=== PATIENT | male | born 1985 | race Caucasian/White ===

== ENCOUNTER 2017-03-01 23:23 | Emergency (ER) | payer OTHER ==
[~2017-03-01] VITALS: Ht 185.4 cm; Wt 81.7 kg
[2017-03-02] MEDS ORDERED: CEPHALEXIN500 MG PO (00:23)
[2017-03-02] MEDS ORDERED: TRAMADOL HCL50 MG PO (00:23)
[2017-03-02] MEDS ORDERED: ACETAMINOPHEN-1 EAC1 PO (00:37)
== END 2017-03-02 00:54 | disposition home or self-care (01) ==
LOC: ED 23:23
DX: S02.2XXA Fracture of nasal bones, initial encounter for closed fracture (principal); F17.200 Nicotine dependence, unspecified, uncomplicated; Z90.49 Acquired absence of other specified parts of digestive tract; Z88.0 Allergy status to penicillin; Z88.6 Allergy status to analgesic agent; Z88.5 Allergy status to narcotic agent; W22.8XXA Striking against or struck by other objects, initial encounter
CPT/HCPCS: 70160; 99283

== ENCOUNTER 2017-05-01 19:01 | Emergency (ER) | payer OTHER ==
[~2017-05-01] VITALS: Ht 185.4 cm; Wt 81.7 kg
[~2017-05-01 19:01] MED LIST: ACETAMINOPHEN-1 EAC1 PO; CEPHALEXIN500 MG PO; TRAMADOL HCL50 MG PO
[2017-05-01] MEDS ORDERED: KEFLEX500 MG PO (20:53)
== END 2017-05-01 21:03 | disposition home or self-care (01) ==
LOC: ED 19:01
DX: N39.0 Urinary tract infection, site not specified (principal); F17.200 Nicotine dependence, unspecified, uncomplicated; Z88.0 Allergy status to penicillin; Z88.5 Allergy status to narcotic agent; Z88.6 Allergy status to analgesic agent
CPT/HCPCS: 81001; 87088; 99283

== ENCOUNTER 2021-02-08 21:35 | Emergency (ER) | payer OTHER ==
[~2021-02-08] VITALS: Ht 185.4 cm; Wt 81.7 kg
[~2021-02-08 21:35] MED LIST changes: +KEFLEX500 MG PO
--- OUTSIDE RECORDS SUMMARY | 2021-02-08 21:42 | XMS ---
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 [place] VISIT COUNT (12 MO.) 1 Madisyn Ortiz TOTAL 2 NOTE: Visits indicate total known visits. ED/UCC VISIT TRACKING (12 MO.) 02/08/2021 21:35 [facility] [place] TYPE: Emergency COMPLAINT: - BACK PAIN 02/18/2020 23:53 Madisyn [facility] TYPE: Emergency COMPLAINT: - ambulance INPATIENT VISIT TRACKING (12 MO.) No inpatient visits to display in this time frame [email or web address]
[2021-02-08] MEDS ORDERED: CYCLOBENZAPRINE10 MG PO (23:39)
== END 2021-02-09 00:19 | disposition home or self-care (01) ==
LOC: ED 21:35
DX: S00.83XA Contusion of other part of head, initial encounter (principal); M54.5 Low back pain; G89.29 Other chronic pain; Z87.891 Personal history of nicotine dependence; Z88.0 Allergy status to penicillin; Z88.8 Allergy status to other drugs, medicaments and biological substances; Z88.5 Allergy status to narcotic agent; W22.8XXA Striking against or struck by other objects, initial encounter
CPT/HCPCS: 70450; 72131; 96374; 96375; 99284-25; J1170; J2405

== ENCOUNTER 2021-03-16 16:40 | Emergency (ER) | payer OTHER ==
[~2021-03-16] VITALS: Ht 185.4 cm; Wt 84.4 kg
[~2021-03-16 16:40] MED LIST changes: +CYCLOBENZAPRINE10 MG PO
--- OUTSIDE RECORDS SUMMARY | 2021-03-16 16:48 | XMS ---
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 Lita VISIT COUNT (12 MO.) 2 NALLELY Ortiz TOTAL 2 NOTE: Visits indicate total known visits. ED/UCC VISIT TRACKING (12 MO.) 03/16/2021 16:41 [facility] [place] TYPE: Emergency COMPLAINT: - BACK PAIN 02/08/2021 21:35 [facility] [place] TYPE: Emergency COMPLAINT: - BACK PAIN DIAGNOSES: - Personal history of nicotine dependence - Allergy status to penicillin - Other chronic pain - Low back pain - Allergy status to other drugs, medicaments and biological substances - Striking against or struck by other objects, initial encounter - Allergy status to narcotic agent - Contusion of other part of head, initial encounter INPATIENT VISIT TRACKING (12 MO.) No inpatient visits to display in this time frame [email or web address]
[2021-03-16] MEDS ORDERED: CYCLOBENZAPRINE10 MG PO (19:29)
[2021-03-16] MEDS ORDERED: MILLIPRED DP5 MG PO (19:29)
== END 2021-03-16 19:45 | disposition home or self-care (01) ==
LOC: ED 16:40
DX: M54.16 Radiculopathy, lumbar region (principal); Z20.822 Contact with and (suspected) exposure to COVID-19; Z87.891 Personal history of nicotine dependence; Z88.0 Allergy status to penicillin; Z88.5 Allergy status to narcotic agent
CPT/HCPCS: 72131; 96374; 99284-25; C9803; J1100; J1885; U0003

== ENCOUNTER 2023-02-28 10:25 | Emergency (ER) | payer OTHER ==
[~2023-02-28] VITALS: Ht 185.4 cm; Wt 80.3 kg
[~2023-02-28 10:25] MED LIST changes: +MILLIPRED DP5 MG PO
--- OUTSIDE RECORDS SUMMARY | 2023-02-28 10:33 | XMS ---
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 Lita VISIT COUNT (12 MO.) 1 Surekha Ortiz TOTAL 2 NOTE: Visits indicate total known visits. ED/UCC VISIT TRACKING (12 MO.) 02/28/2023 10:[address] [facility] TYPE: Emergency COMPLAINT: - WOUND CARE 04/23/2022 20:54 [facility] Viktoriya SIFUENTES TYPE: Emergency DIAGNOSES: - Cellulitis of left lower limb - Cellulitis of left upper limb - Cellulitis INPATIENT VISIT TRACKING (12 MO.) No inpatient visits to display in this time frame [email or web address]
[2023-02-28 10:41] LABS: BASOPHILS 0.3 % (0-2); HEMATOCRIT 43.3 % (35.0-50.0); HEMOGLOBIN 14.8 g/dL (12.0-18.0); LYMPHOCYTES 12.5 % (24-44); MCH 31.5 (27-36); MCHC 34.3 g/dl (30-36); MCV 91.9 fl (81-99); MONOCYTES 9.4 % (0-12); NEUTROPHILS 77.8 % (39-80); PLATELET COUNT 269 K/uL (140-440); RBC 4.71 M/ul (4.3-5.7); RDW 13.1 (10.5-15.0)
[2023-02-28 10:56] LABS: ALBUMIN 4.2 g/dL (3.4-5.0); ALBUMIN/GLOBULIN RATIO 1.24 (1.1-2.4); ALCOHOL, MEDICAL <3 ng/dL (<3); ALKALINE PHOSPHATASE 85 U/L (46-116); ALT (SGPT) 27 U/L (14-59); ANION GAP 20.9 (7-21); AST (SGOT) 21 U/L (15-37); BILIRUBIN, TOTAL 0.9 ng/dL (0.2-1.0); BUN/CREATININE RATIO 13.17 (6.0-28.6); CALCIUM 9.3 mg/dL (8.5-10.1); CARBON DIOXIDE 22 mmol/L (21-32); CHLORIDE 103 mmol/L (98-107); CREATININE, SERUM 1.29 mg/dL (0.70-1.30); GLOMERULAR FILTRATION RATE,EST 74 mL/min (>60); POTASSIUM 3.9 mmol/L (3.5-5.1); PROTEIN, TOTAL 7.6 g/dL (6.4-8.2); UREA NITROGEN 17 mg/dL (7-18)
[2023-02-28 12:50] VITALS: BP 136/86
== END 2023-02-28 12:50 | disposition home or self-care (01) ==
LOC: ED 10:25
PROVIDERS: Emergency Medicine
DX: Z02.89 Encounter for other administrative examinations (principal); S33.5XXA Sprain of ligaments of lumbar spine, initial encounter; X58.XXXA Exposure to other specified factors, initial encounter; Z87.891 Personal history of nicotine dependence; Z88.0 Allergy status to penicillin; Z88.8 Allergy status to other drugs, medicaments and biological substances; Z88.6 Allergy status to analgesic agent; Z88.5 Allergy status to narcotic agent
CPT/HCPCS: 36415; 72100; 80053; 85025; 96374; 99284-25; G0480; J3010; J7121